=== PATIENT | female | born 1995 | race Caucasian/White ===

== ENCOUNTER 2017-05-10 21:24 | Emergency (ER) | payer BC ==
[2017-05-10 22:21] LABS: HCG URINE NEGATIVE (NEGATIVE)
[2017-05-10 22:22] LABS: APPEARANCE CLEAR (CLEAR); BILIRUBIN NEGATIVE (NEGATIVE); COLOR YELLOW (YELLOW); EPITHELIAL CELLS 0-5 /hpf (0-5); GLUCOSE NEGATIVE (NEGATIVE); KETONE NEGATIVE (NEGATIVE); NITRITE NEGATIVE (NEGATIVE); PH 6.5 (5.0-6.0); PROTEIN NEGATIVE (NEGATIVE); RED CELLS - URINE OCC /hpf (0-5); SPECIFIC GRAVITY 1.015 (1.005-1.020); UROBILINOGEN NORMAL (NORMAL); WHITE CELLS - URINE 0-5 /hpf (0-5)
[2017-05-10 22:23] LABS: BACTERIA FEW /hpf (NONE SEEN); MUCUS <1+ /lpf (NONE SEEN)
[2017-05-10 22:29] LABS: BASOPHILS 0.2 % (0-2); EOSINOPHILS 0.5 % (0-7); HEMATOCRIT 38.3 % (36.0-48.0); HEMOGLOBIN 12.9 g/dL (12-16); MCH 30.6 pg (26.0-34.0); MCHC 33.7 g/dL (31.0-37.0); MCV 90.8 fL (80.0-100.0); MEAN PLATELET VOLUME 9.3 fL (7.4-10.4); MONOCYTES 8.4 % (2-11); NEUTROPHILS 60.9 % (40-80); PLATELET COUNT 171 10x3/uL (130-400); RBC 4.22 10x6/uL (4.00-5.40); RDW 13.3 % (11.5-14.5)
[2017-05-10 22:48] LABS: ALBUMIN 3.8 g/dL (3.4-5.0); ALKALINE PHOSPHATASE 66 U/L (46-116); ALT (SGPT) 20 U/L (10-68); AMYLASE - SERUM 49 U/L (25-115); CALC OSMOLALITY 275 mosm/kg (275-300); CALCIUM 9.4 mg/dL (8.5-10.1); CARBON DIOXIDE 32.1 mmol/L (21.0-32.0); CHLORIDE - SERUM 102 mmol/L (98-107); CREATININE - SERUM 0.8 mg/dL (0.6-1.3); GLUCOSE 86 mg/dL (74-106); LIPASE 80 U/L (73-393); POTASSIUM - SERUM 3.8 mmol/L (3.5-5.1); PROTEIN - SERUM 7.7 g/dL (6.4-8.2); SODIUM 140 mmol/L (136-145); UREA NITROGEN 7 mg/dL (7-18); eGFR NON AFRICAN AMERICAN > 90 mL/min (90-120)
== END 2017-05-11 00:56 | disposition home or self-care (01) ==
LOC: D.ER 21:24
PROVIDERS: Family Medicine
DX: R10.9 Unspecified abdominal pain (principal); N39.0 Urinary tract infection, site not specified

== ENCOUNTER 2018-11-09 19:37 | Emergency (ER) | payer BC ==
[~2018-11-09] VITALS: Ht 149.9 cm; Wt 65.9 kg
[2018-11-09 19:41] VITALS: Ht 149.9 cm; Wt 65.9 kg
[2018-11-09] MEDS ORDERED: TORADOL10 MG PO (20:23)
[2018-11-09] MEDS ORDERED: NEURONTIN 300300 MG PO (20:23)
[2018-11-09] MEDS ORDERED: CLEOCIN HCL300 MG PO (20:23)
[2018-11-09 21:05] VITALS: BP 119/88
== END 2018-11-09 21:05 | disposition home or self-care (01) ==
LOC: D.ER 19:37
DX: K08.89 Other specified disorders of teeth and supporting structures (principal)

== ENCOUNTER 2020-08-04 09:11 | Emergency (ER) | payer BC ==
[~2020-08-04] VITALS: Ht 149.9 cm; Wt 79.5 kg
[~2020-08-04 09:11] MED LIST: CLEOCIN HCL300 MG PO; NEURONTIN 300300 MG PO; TORADOL10 MG PO
[2020-08-04 09:18] VITALS: Ht 149.9 cm; Wt 79.5 kg
[2020-08-04] MEDS ORDERED: ZOFRAN ODT4 MG/UDTAB PO (09:21)
[2020-08-04] MEDS ORDERED: CARAFATE1 G PO (09:21)
[2020-08-04] MEDS ORDERED: PEPCID AC20 MG PO (09:21)
[2020-08-04] MEDS ORDERED: HYDROCODON-ACE1 EAC7 PO ×2 (09:22→15:51)
[2020-08-04 09:59] LABS: BILIRUBIN NEGATIVE (NEGATIVE); KETONE NEGATIVE (NEGATIVE); NITRITE NEGATIVE (NEGATIVE); UROBILINOGEN NORMAL mg/dL (< 2)
[2020-08-04 10:03] LABS: CALC OSMOLALITY 271 mosm/kg (275-300); CARBON DIOXIDE 23.2 mmol/L (21.0-32.0); CHLORIDE - SERUM 106 mmol/L (98-107); CREATININE - SERUM 0.8 mg/dL (0.6-1.3); GLUCOSE 90 mg/dL (74-106); POTASSIUM - SERUM 4.2 mmol/L (3.5-5.1); SODIUM 137 mmol/L (136-145); UREA NITROGEN 8 mg/dL (7-18); eGFR NON AFRICAN AMERICAN > 90 mL/min (90-120)
[2020-08-04 10:04] LABS: BASOPHILS 0.6 % (0-2); EOSINOPHILS 4.3 % (0-7); HEMATOCRIT 38.6 % (36.0-48.0); HEMOGLOBIN 13.2 g/dL (12-16); LYMPHOCYTE ABS# 1.95 10x3/uL (1.18-3.74); LYMPHOCYTES 27.9 % (15-50); MCH 30.6 pg (26.0-34.0); MCHC 34.2 g/dL (31.0-37.0); MCV 89.4 fL (80.0-100.0); MEAN PLATELET VOLUME 9.4 fL (7.4-10.4); MONOCYTES 5.9 % (2-11); NEUTROPHIL ABS# 4.29 10x3/uL (1.56-6.13); NEUTROPHILS 61.3 % (40-80); RBC 4.32 10x6/uL (4.00-5.40); RDW 13.7 % (11.5-14.5)
[2020-08-04 10:12] LABS: ALBUMIN 3.7 g/dL (3.4-5.0); ALKALINE PHOSPHATASE 66 U/L (30-120); ALT (SGPT) 30 U/L (10-68); AMYLASE - SERUM 53 U/L (25-115); BILIRUBIN - TOTAL 0.17 mg/dL (0.2-1.3); PROTEIN - SERUM 7.2 g/dL (6.4-8.2)
[2020-08-04 10:14] LABS: LIPASE 47 U/L (73-393); TROPONIN-I < 0.017 ng/mL (0.000-0.060)
[2020-08-04 10:31] LABS: PLATELET COUNT 236 10x3/uL (130-400)
[2020-08-04 16:45] VITALS: BP 113/82
== END 2020-08-04 16:25 | disposition home or self-care (01) ==
LOC: D.ER 09:11
PROVIDERS: Emergency Medicine
DX: K82.8 Other specified diseases of gallbladder (principal); R10.11 Right upper quadrant pain; R11.0 Nausea